=== PATIENT | male | born 1965 | race Caucasian/White ===

== ENCOUNTER 2021-08-31 11:46 | Emergency (ER) | payer BC ==
[2021-08-31 12:00] VITALS: RESP 18
[2021-08-31] MEDS ORDERED: DIAZEPAM 5 MG/ML 2 ML INJ IVP STA (12:27)
[2021-08-31] MEDS ORDERED: SODIUM CHLORIDE 0.9% 500 ML 500 ML IV STA (12:27)
[2021-08-31 12:58] LABS: Basophils # (A) 0.1 k/uL (0-0.2); Basophils % (A) 1 %; Eosinophils # (A) 0.2 k/uL (0-0.7); Eosinophils % (A) 1 %; HCT 48.1 % (39.0-53.0); Lymphocytes # (A) 3.1 k/uL (1.0-4.8); Lymphocytes % (A) 21 %; MCH 31.4 pg (25.0-35.0); MCHC 33.3 g/dL (31.0-37.0); MCV 94.3 fL (80.0-100.0); Mean Platelet Volume 8.4; Monocytes # (A) 0.7 k/uL (0-1.0); Monocytes % (A) 5 %; Neutrophils # (A) 10.3 k/uL (1.3-7.7); Neutrophils % (A) 71 %; Platelet Count 298 k/uL (150-450); RDW 12.9 % (11.5-15.5); WBC 14.6 k/uL (3.8-10.6)
--- NOTE | 2021-08-31 13:20 | ED ---
Anxiety HPI - General Chief Complaint: Anxiety Stated Complaint: anxiety, hypertension Time Seen by Provider: 08/31/21 12:00 Source: patient, family, EMS, RN notes reviewed Mode of arrival: EMS Limitations: no limitations - History of Present Illness Initial Comments: This a 56-year-old male presents emergency Department via EMS chief complaint anxiety, panic attack. Patient states that he was started on Cymbalta states he continued to the weekend states symptoms started after starting medications he states he cannot sleep is very anxious that his heart racing and chest pain associated with. He states he normally has some panic attacks usually sore throat but states is unbearable. Patient did not receive a phone call back from PCP in which he was not sure of the systolic medications continue take the meds and symptoms worsen. There's been suicidal or homicidal. Patient states he has a history of hypertension states that when he was anxious blood pressure was very elevated which also concern patient. - Related Data Home Medications: Home Medications Medication Instructions Recorded Confirmed Cholecalciferol [Vitamin D3 (25 50 mcg PO HS 08/31/21 08/31/21 Mcg = 1000 Iu)] DULoxetine HCL [Cymbalta] 30 mg PO HS 08/31/21 08/31/21 Omeprazole 20 mg PO DAILY PRN 08/31/21 08/31/21 Pravastatin Sodium [Pravachol] 20 mg PO HS 08/31/21 08/31/21 Ubidecarenone [Co Q-10] 100 mg PO MOWEFR@2100 08/31/21 08/31/21 lisinopriL [Zestril] 20 mg PO HS 08/31/21 08/31/21 Previous Rx's Medication Instructions Recorded diazePAM [Valium] 5 mg PO TID PRN 3 Days #9 tab 08/31/21 Allergies/Adverse Reactions: Allergies Allergy/AdvReac Type Severity Reaction Status Date / Time No Known Allergies Allergy Unverified 08/31/21 12:42 Review of Systems ROS Statement: Those systems with pertinent positive or pertinent negative responses have been documented in the HPI. ROS Other: All systems not noted in ROS Statement are negative. Past Medical History Past Medical History: Hyperlipidemia, Hypertension History of Any Multi-Drug Resistant Organisms: None Reported Past Surgical History: Tonsillectomy Past Psychological History: Anxiety Smoking Status: Current every day smoker Past Alcohol Use History: Occasional Past Drug Use History: None Reported General Exam Limitations: no limitations General appearance: alert, in no apparent distress, anxious Head exam: Present: atraumatic, normocephalic, normal inspection Eye exam: Present: normal appearance, PERRL, EOMI. Absent: scleral icterus, conjunctival injection, periorbital swelling ENT exam: Present: normal exam, normal oropharynx, mucous membranes moist Neck exam: Present: normal inspection, full ROM. Absent: tenderness, meningismus, lymphadenopathy Respiratory exam: Present: normal lung sounds bilaterally. Absent: respiratory distress, wheezes, rales, rhonchi, stridor Cardiovascular Exam: Present: regular rate, normal rhythm, normal heart sounds. Absent: systolic murmur, diastolic murmur, rubs, gallop, clicks GI/Abdominal exam: Present: soft, normal bowel sounds. Absent: distended, tenderness, guarding, rebound, rigid Neurological exam: Present: alert Psychiatric exam: Present: anxious Skin exam: Present: warm, dry, intact, normal color. Absent: rash Course Vital Signs 08/31/21 08/31/21 11:54 12:59 Pulse Rate 99 92 Respiratory 18 18 Rate Blood Pressure 153/106 135/77 O2 Sat by Pulse 99 96 Oximetry Medical Decision Making - Medical Decision Making 56-year-old presented for anxiety, pain tach after starting Cymbalta. Patient feels greatly improved after Valium. Patient did have Labs which does not reveal any significant findings. Patient will discontinue Cymbalta as he just started the medication he'll follow-up his PCP regarding further directions of medications and return parameters were discussed. - Lab Data Result diagrams: 08/31/21 12:45 08/31/21 13:56 Lab Results 08/31/21 08/31/21 08/31/21 Range/Units 12:45 13:56 13:56 WBC 14.6 H (3.8-10.6) k/uL RBC 5.10 (4.30-5.90) m/uL Hgb 16.0 (13.0-17.5) gm/dL Hct 48.1 (39.0-53.0) % MCV 94.3 (80.0-100.0) fL MCH 31.4 (25.0-35.0) pg MCHC 33.3 (31.0-37.0) g/dL RDW 12.9 (11.5-15.5) % Plt Count 298 (150-450) k/uL MPV 8.4 Neutrophils % 71 % Lymphocytes % 21 % Monocytes % 5 % Eosinophils % 1 % Basophils % 1 % Neutrophils # 10.3 H (1.3-7.7) k/uL Lymphocytes # 3.1 (1.0-4.8) k/uL Monocytes # 0.7 (0-1.0) k/uL Eosinophils # 0.2 (0-0.7) k/uL Basophils # 0.1 (0-0.2) k/uL Sodium 136 L (137-145) mmol/L Potassium 4.3 (3.5-5.1) mmol/L Chloride 101 (98-107) mmol/L Carbon Dioxide 25 (22-30) mmol/L Anion Gap 10 mmol/L BUN 10 (9-20) mg/dL Creatinine 0.72 (0.66-1.25) mg/dL Est GFR (CKD-EPI)AfAm >90 (>60 ml/min/1.73 sqM) Est GFR (CKD-EPI)NonAf >90 (>60 ml/min/1.73 sqM) Glucose 115 H (74-99) mg/dL Calcium 9.5 (8.4-10.2) mg/dL Magnesium 2.0 (1.6-2.3) mg/dL Total Bilirubin 0.7 (0.2-1.3) mg/dL AST 33 (17-59) U/L ALT 31 (4-49) U/L Alkaline Phosphatase 89 (38-126) U/L Troponin I <0.012 (0.000-0.034) ng/mL Total Protein 7.9 (6.3-8.2) g/dL Albumin 4.8 (3.5-5.0) g/dL Disposition Clinical Impression: Panic attack, Acute anxiety, Medication reaction Disposition: HOME SELF-CARE Condition: Stable Instructions (If sedation given, give patient instructions): Generalized Anxiety Disorder (ED) Additional Instructions: Please return to the Emergency Department if symptoms worsen or any other concerns. Prescriptions: diazePAM [Valium] 5 mg PO TID PRN 3 Days #9 tab PRN Reason: anxiety Is patient prescribed a controlled substance at d/c from ED?: Yes When asked, does pt state using other controlled substances?: No If prescribed controlled substance>3 days was MAPS reviewed?: Prescribed <3 Days Referrals: Luciana Torres DO [Primary Care Provider] - 1-2 days Time of Disposition: 14:35
[2021-08-31 14:17] LABS: ALT 31 U/L (4-49); AST 33 U/L (17-59); African American GFR (CKD) >90 (>60 ml/min/1.73 sqM); Albumin 4.8 g/dL (3.5-5.0); Alkaline Phosphatase 89 U/L (38-126); Anion Gap 10 mmol/L; Blood Urea Nitrogen 10 mg/dL (9-20); Calcium 9.5 mg/dL (8.4-10.2); Carbon Dioxide 25 mmol/L (22-30); Chloride 101 mmol/L (98-107); Glucose 115 mg/dL (74-99); Non-African American GFR(CKD) >90 (>60 ml/min/1.73 sqM); Potassium 4.3 mmol/L (3.5-5.1); Sodium 136 mmol/L (137-145); Total Bilirubin 0.7 mg/dL (0.2-1.3); Total Protein 7.9 g/dL (6.3-8.2)
[2021-08-31 14:34] VITALS: BP 133/88; PULSE 72
== END 2021-08-31 14:41 | disposition home or self-care (01) ==
LOC: EC 11:46
DX: F41.9 Anxiety disorder, unspecified (principal); F41.0 Panic disorder [episodic paroxysmal anxiety]; F17.200 Nicotine dependence, unspecified, uncomplicated; I10 Essential (primary) hypertension
CPT/HCPCS: 36415; 93005; 80053; 83735; 84484; 85025; 99284; 96374; 96361; J3360